=== PATIENT | male | born 1945 | race Caucasian/White ===

== ENCOUNTER 2017-01-29 11:17 | Emergency (ER) | payer MEDICARE, OTHER ==
[2017-01-29 11:38] LABS: BASOPHILS 0.7 % (0.0-2.0); EOSINOPHILS 2.1 % (0.0-6.0); EOSINOPHILS# 0.1 X 10^3uL (0.0-0.4); HEMOGLOBIN 18.6 g/dL (14.0-18.0); LYMPHOCYTES# 1.2 X 10^3uL (0.8-3.8); MEAN CELL VOLUME 89.1 fL (80.0-100.0); MEAN CORPUSCULAR HEMOGLOBIN 31.2 pg (29.0-35.0); MEAN PLATELET VOLUME 8.3 fL (7.4-10.4); MONOCYTES 8.7 % (2.0-10.0); MONOCYTES# 0.5 X 10^3uL (0.2-1.0); NEUTROPHILS 69.5 % (54.0-75.0); NEUTROPHILS# 4.5 X 10^3uL (2.6-6.7); PLATELET COUNT 206 X 10^3uL (130-440); RED BLOOD COUNT 5.95 X 10^6uL (4.20-6.10); RED CELL DISTRIBUTION WIDTH 11.5 % (11.5-14.5); WHITE BLOOD COUNT 6.3 X 10^3uL (3.9-10.7)
[2017-01-29 11:46] LABS: BLOOD UREA NITROGEN 15 mg/dL (9-20); CALCIUM 10.5 mg/dL (8.4-10.2); CHLORIDE 105 mmol/L (98-107); EST GLOMERULAR FILTRATION RATE > 60 mL/min; GLUCOSE 130 mg/dL (70-100); POTASSIUM 4.1 mmol/L (3.5-5.1); SODIUM 140 mmol/L (137-145)
[2017-01-29] MEDS ORDERED: NITROGLYCERIN 0.4 MG TAB.SUBL SUBLINGUAL ONE (11:51)
[2017-01-29 12:00] LABS: TROPONIN I 0.093 ng/mL (0.00-0.034)
--- NOTE | 2017-01-29 12:10 | RADIOLOGY REPORT ---
HISTORY: Chest pain. COMPARISON: None. FINDINGS: 1 view of the chest obtained. There is no consolidation. There is no pleural effusion. There is no pneumothorax. The cardiomediastinal silhouette is normal. There is no abnormality of the pulmonary vessels. There is no focal lung parenchymal nodule. There is no bone lesion. IMPRESSION: No acute findings in the chest. Final Electronic Signature: This report was electronically signed by Chace Ash MD on 01/29/2017 12:07 PM. rainer /
[2017-01-29] MEDS ORDERED: NITROGLYCERIN 250 ML IV ONE (12:40)
[2017-01-29] MEDS ORDERED: NORMAL SALINE 500 ML IV ONE (12:51)
--- NOTE | 2017-01-29 13:46 | ER NURSING DOCUMENTATION ---
Nurse's Notes [facility] Name:Anatoly Marinelli Jr Age:71 yrs Sex:Male :1945 Arrival Date:01/29/2017 Time:11:17 BedTrauma-C Private MD: Diagnosis:Unstable Angina Presentation: 01/29 11:21 Presenting complaint: Patient states: Pt c/o chest tightness and heartburn since rh Monday. Pain in the right arm, dizzy and SOB on Monday. Transition of care: Home. 11:21 Acuity: GEORGE 2 11:21 Method Of Arrival: Walk In Triage Assessment: 11:30 General: Appears in no apparent distress, Behavior is cooperative. Pain: Complains of rh pain in mid-sternal area, right breast and left breast Quality of pain is described as tightness. EENT: Oral mucosa is dry. Neuro: Level of Consciousness is awake, alert, obeys commands, Oriented to person, place, time, event. Cardiovascular: Capillary refill < 3 seconds Reports lightheadedness, Nausea shortness of breath Rhythm is sinus rhythm Chest pain is described as vague, quality is heaviness, is located in anterior radiates to right arm(s) began MONDAY episodes are continuous. Respiratory: Airway is patent Respiratory effort is even, unlabored, Respiratory pattern is regular, symmetrical, Reports shortness of breath at rest. GI: Abdomen is obese, Abd is soft and non tender X 4 quads. Reports nausea. : No deficits noted. Derm: Skin is intact, is healthy with good turgor, Skin is pink, warm & dry. Musculoskeletal: Circulation, motion, and sensation intact Range of motion intact in all extremities. Historical: - Allergies: Ibuprofen; - Home Meds: 1. Aspirin Oral 2. Salagen oral 3. Nexium Oral - PMHx: GERD; CANCER HEAD AND NECK; - PSHx: Cataract left eye may right eye august ; NECK DISSECTION; - Tetanus: < 10 years. - Ebola Screening: : Patient negative for fever greater than or equal to 101.5 degrees Fahrenheit, and additional compatible Ebola Virus Disease symptoms. - Immunization history: Flu Vaccine < 1 year. - Social history: Smoking status: Patient states was never smoker of tobacco. Screenin:27 Infectious Disease Risk None. Abuse screen: Denies threats or abuse. Denies injuries rh from another. Nutritional screening: No deficits noted. Assessment: 11:27 See Triage Assessment done by same RN. rh Vital Signs: 11:24 BP 188 / 111; Pulse 79; Resp 24; Temp 99.2(TE); Pulse Ox 93% ; Weight 87.54 kg; Height rh 5 ft. 9 in. (175.26 cm); Pain 6/10; 11:45 BP 156 / 96; Pulse 95; Resp 20; Pulse Ox 94% on 2 lpm NC; rh 12:03 BP 117 / 83; Pulse 98; Resp 18; Pulse Ox 96% on 2 lpm NC; rh 12:46 BP 168 / 86; Pulse 84; Resp 18; Pulse Ox 95% on 2 lpm NC; rh 13:07 BP 125 / 91; Pulse 81; Resp 17; Pulse Ox 95% on 2 lpm NC; rh 11:24 Body Mass Index 28.50 (87.54 kg, 175.26 cm) rh ED Course: 11:19 EKG done. (by ED staff). Reviewed by John Mullen MD. rh 11:21 Patient arrived in ED. 11:21 Loulou Villavicencio is Primary Nurse. rh 11:22 Triage completed. rh 11:23 Inserted peripheral IV: 18 gauge in right antecubital area and blood collected. rh INSERTED BY KATHLEEN Vergara RN. Oxygen Oxygen administration via nasal cannula @ 2L/min. 11:27 Notified ED Physician of patient's arrival and chief complaint. Dr. Mullen notified. rh 11:27 Valuables Remains with patient Patient has correct armband on for positive rh identification. Placed in gown. Bed in low position. Call light in reach. Side rails up X 1. court monitor on. Pulse ox on. NIBP on. Warm blanket given. Pillow given. 11:29 John Mullen MD is Attending Physician. tl1 11:31 Port Xray Completed. pm1 11:36 EKG attached lc 13:01 Inserted peripheral IV: 20 gauge in left antecubital area. arc Administered Medications: 11:40 Drug: Nitroglycerin 0.4 mg; {Note: SECOND NITRO AT [address] MULLEN.} Route: rh Sublingual; 11:51 Follow up: Response: No adverse reaction rh 13:07 Follow up: Response: No adverse reaction rh 12:45 Drug: NS 0.9% 500 ml; Route: IV; Rate: TKO; Site: right antecubital; rh 13:08 Follow up: IV Status: Infusing continued upon transfer rh 12:54 Drug: Nitroglycerin 10 mcg/min; Route: IV; Rate: calculated rate; Site: right rh antecubital; 13:08 Follow up: IV Status: Infusing continued upon transfer rh Output: 13:08 Urine: 300ml (Voided); Total: 300ml. rh Outcome: 13:37 Transferred: Patient will be transferred to: [facility]. Facility rh Acceptance Time: January 29, 2017 at 12:45 Patient's face sheet was faxed to accepting facility. Face Sheet included patient's name, address, age, gender, contact information and insurance information. Patient will be transported by: [facility] ground. Report called to: TOMMY Lemus RN AT [facility] Nurse and Physician Charting and Notes were sent to Accepting Facility. All tests and/or procedures with results, if applicable, were sent to accepting facility. 13:37 Condition: stable 13:37 Discharge Assessment: Patient awake, alert and oriented x 3. No cognitive and/or functional deficits noted. Patient verbalized understanding of disposition instructions. 13:37 Discharge instructions given to patient, Instructed on need for transfer 13:41 ER care complete, transfer ordered by . tl1 13:45 Patient left the ED. Signatures: Marnie Dailey, BRYANT RN Terry José pm1 John Mullen MD MD tl1 Jessica Talavera, Anthony Cruz [facility], Loulou Violet [place]
--- NOTE | 2017-01-29 13:46 | ER PHYSICIAN DOCUMENTATION ---
Physician Documentation [facility] Name:Anatoly Marinelli Jr Age:71 yrs Sex:Male :1945 Arrival Date:01/29/2017 Time:11:17 BedTrauma-C Private MD: John Marques Disposition: 01/29 14:00 Critical Care: not applicable. Chart complete. tl1 Disposition: 01/29/17 13:41 Transfer ordered to [facility]. Diagnosis is Unstable Angina. - Reason for transfer: Higher level of care. - Accepting physician is Laura Brasher. - Condition is Good. - Problem is new. - Symptoms have improved. COBRA Form completed? Yes Transfer - Mode of Transportation Ambulance HPI: 11:29 This 71 yrs old Male presents to ER via Walk In with complaints of Chest tl1 Tightness. 12:37 The patient or guardian reports chest pain that is located primarily in the substernal tl1 area. Onset: gradually, 3 day(s) ago. The pain does not radiate. There has been no movement of pain. Associated signs and symptoms: Pertinent positives: diaphoresis, nausea, shortness of breath, Pertinent negatives: lower extremity pain, lower extremity swelling, palpitations. The chest pain is described as a heaviness, a pressure. Duration: The patient or guardian reports multiple episodes. Modifying factors: The symptoms are alleviated by rest, the symptoms are aggravated by exertion. Severity of pain: At its worst the pain was moderate in the emergency department the pain has improved. The patient has not experienced similar symptoms in the past. The pressure does not bother him when he sleeps, but during waking hours he has at least mild discomfort 80% of the time and it is persistently worse with even mild exertion and reliably better when resting. He does take a baby aspirin a day and has had one today. CRF: ?? HTN, age, male gender. No tobacco, DM. Historical: - Allergies: Ibuprofen; - Home Meds: 1. Aspirin Oral 2. Salagen oral 3. Nexium Oral - PMHx: GERD; CANCER HEAD AND NECK; - PSHx: Cataract left eye may right eye august ; NECK DISSECTION; - Tetanus: < 10 years. - Ebola Screening: : Patient negative for fever greater than or equal to 101.5 degrees Fahrenheit, and additional compatible Ebola Virus Disease symptoms. - Immunization history: Flu Vaccine < 1 year. - Social history: Smoking status: Patient states was never smoker of tobacco. ROS: 12:41 Cardiovascular: Positive for chest pain, orthopnea, Negative for palpitations. tl1 12:41 All other systems are negative. Exam: 12:41 Constitutional: This is a well developed, well nourished patient who is awake, alert, tl1 and in no acute distress. Head/Face: Normocephalic, atraumatic. Eyes: Pupils equal round and reactive to light, extra-ocular motions intact. Lids and lashes normal. Conjunctiva and sclera are non-icteric and not injected. Cornea within normal limits. Periorbital areas with no swelling, redness, or edema. ENT: Nares patent. No nasal discharge, no septal abnormalities noted. Tympanic membranes are normal and external auditory canals are clear. Oropharynx with no redness, swelling, or masses, exudates, or evidence of obstruction, uvula midline. Mucous membranes moist. Neck: Trachea midline, no thyromegaly or masses palpated, and no cervical lymphadenopathy. Supple, full range of motion without nuchal rigidity, or vertebral point tenderness. No Meningismus. 12:41 Chest/axilla: Normal chest wall appearance and motion. Nontender with no deformity. tl1 No lesions are appreciated. 12:41 Cardiovascular: Rate: normal, Rhythm: regular, Heart sounds: normal, Edema: is not appreciated, JVD: is not appreciated. 12:41 Respiratory: the patient does not display signs of respiratory distress, Respirations: normal, Breath sounds: are normal. 12:41 Abdomen/GI: Inspection: abdomen appears normal, Bowel sounds: normal, Palpation: abdomen is soft and non-tender. 12:41 Musculoskeletal/extremity: Exam is negative for acute changes. 12:41 Skin: Exam negative for acute changes. 12:41 Neuro: Exam negative for acute changes. Vital Signs: 11:24 BP 188 / 111; Pulse 79; Resp 24; Temp 99.2(TE); Pulse Ox 93% ; Weight 87.54 kg; Height rh 5 ft. 9 in. (175.26 cm); Pain 6/10; 11:45 BP 156 / 96; Pulse 95; Resp 20; Pulse Ox 94% on 2 lpm NC; rh 12:03 BP 117 / 83; Pulse 98; Resp 18; Pulse Ox 96% on 2 lpm NC; rh 12:46 BP 168 / 86; Pulse 84; Resp 18; Pulse Ox 95% on 2 lpm NC; rh 13:07 BP 125 / 91; Pulse 81; Resp 17; Pulse Ox 95% on 2 lpm NC; rh 11:24 Body Mass Index 28.50 (87.54 kg, 175.26 cm) MDM: 11:29 Patient medically screened. tl1 11:29 ECG:. tl1 11:36 EKG attached lc 12:00 Patient did not receive fibrinolytic due to No evidence for STEMI. tl1 12:42 Differential diagnosis: acute myocardial infarction, acute pericarditis, myocarditis, tl1 thoracic aortic disection, unstable angina. Patient took aspirin within the past 24 hours. The patient's deep vein thrombosis risk score was calculated as follows: Total Score:. The patient's pulmonary embolism risk score was calculated as follows: No Risks (0 Pts). SONNY Risk Score: 1 - patient's age is greater or equal to 65 years, 1 - ASA use in past 7 days, 1 - Elevated Cardiac Markers. Data reviewed: vital signs, nurses notes, old medical records, lab test result(s), EKG, radiologic studies, plain films, and as a result, I will discharge patient. 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 Counseling: I had a detailed discussion with the patient and/or guardian regarding: the historical points, exam findings, and any diagnostic results supporting the discharge/admit diagnosis, lab results, radiology results, the need to transfer to another facility. Medication response: The patient's symptoms have improved, Nitro x 2 partially relieved pain. Response to treatment: the patient's symptoms have mildly improved after treatment. Physician consultation: was called at 12:40, was contacted at 12:50, regarding admission, to the ICU, patient's condition, and will see patient in inpatient room, at [facility]. after a discussion of the case, a recommendation for transfer for higher level of care is made. ED course: He initially had his pain decrease from about a 2/10, to barely detectable after SLNTG X 2, BUT the pain recurred and he was placed on a NTG gtt.. 01/29 11:49 Order name: CBC AUTO DIF, MDIF/RMOR IF IND; Complete Time: 13:05 EDMS 01/29 12:57 Interpretation: WHITE BLOOD COUNT 6.3; HEMOGLOBIN 18.6; HEMATOCRIT 53.0; PLATELET COUNT tl1 206. 01/29 12:01 Order name: BASIC METABOLIC PANEL; Complete Time: 13:05 EDIL 01/29 12:57 Interpretation: SODIUM 140; POTASSIUM 4.1; CHLORIDE 105; CARBON DIOXIDE 25; GLUCOSE tl1 130; BLOOD UREA NITROGEN 15; CREATININE 1.1; EST GLOMERULAR FILTRATION RATE > 60; CALCIUM 10.5. 01/29 12:01 Order name: MAGNESIUM; Complete Time: 13:05 EDIL 01/29 12:57 Interpretation: Normal: MAGNESIUM 2.0. [facility] 01/29 12:01 Order name: TROPONIN I; Complete Time: 13:05 EDIL 01/29 12:57 Interpretation: Abnormal: TROPONIN I 0.093. [facility] 01/29 12:11 Order name: CHEST; SINGLE [place]IEW [id number]; Complete Time: 13:05 EDIL 01/29 12:57 Interpretation: Normal: NAD. See radiologist report. [facility] 01/29 11:25 Order name: 12-lead EKG; Complete Time: 11: 01/31 04:14 Interpretation: SEE NOTE. [facility] 01/29 11:25 Order name: Iv Saline Lock; Complete Time: 11: 01/29 11:25 Order name: Place Patient On Monitor; Complete Time: 01/29 11:25 Order name: Pulse Ox Continuous; Complete Time: : 01/29 11:35 Order name: Oxygen; Complete Time: 11:35 rh EC:19 Rate is 82 beats/min. Rhythm is regular. QRS [place] is Normal. MO interval is normal at tl1 141 msec. QRS interval is normal at 95 msec. QT interval is normal at 356 msec. No Q waves. T waves are Normal. No ST changes noted. Clinical impression: Normal ECG. Interpreted by me. Reviewed by me. Dispensed Medications: 11:40 Drug: Nitroglycerin 0.4 mg; {Note: SECOND NITRO AT [address] BRADLEY.} Route: rh Sublingual; 11:51 Follow up: Response: No adverse reaction rh 13:07 Follow up: Response: No adverse reaction rh 12:45 Drug: NS 0.9% 500 ml; Route: IV; Rate: TKO; Site: right antecubital; rh 13:08 Follow up: IV Status: Infusing continued upon transfer 12:54 Drug: Nitroglycerin 10 mcg/min; Route: IV; Rate: calculated rate; Site: right rh antecubital; 13:08 Follow up: IV Status: Infusing continued upon transfer Signatures: Marnie Dailey RN RN John Traore MD MD tl1 Loulou Villavicencio
== END 2017-01-29 13:46 | disposition short-term general hospital (02) ==
LOC: ER 11:17
DX: I20.0 Unstable angina (principal); R06.01 Orthopnea; R61 Generalized hyperhidrosis; Z79.82 Long term (current) use of aspirin; K21.9 Gastro-esophageal reflux disease without esophagitis; Z85.9 Personal history of malignant neoplasm, unspecified; Z79.899 Other long term (current) drug therapy; Z99.89 Dependence on other enabling machines and devices; Z74.3 Need for continuous supervision
CPT/HCPCS: 71010; 80048; 83735; 84484; 85025; 93005; 96365; 96374; 99285; A0425; A0426; J7040